=== PATIENT | male | born 1960 | race Caucasian/White ===

== ENCOUNTER 2017-10-27 10:35 | Inpatient (IN) ==
[~2017-10-27 10:35] MED LIST: BUPivacaine Liposome/PF (Exparel) Inj 20ml vial INFIL ONE; Ketorolac Inj 30 MG, Morphine Inj 5 MG, BUPivacaine Inj 0.25% PF 150 MG SPLASH ONE; LIDOCAINE W/ SODIUM BICARB 0.5 ML SYR ONE; LIDOCAINE W/ SODIUM BICARB 0.5 ML SYR SUBD ONE; Lactated Ringers 1,000 ML PRIMARY IV ONE; Sodium Chloride 0.9% 0 ML ONE; TRANEXAMIC ACID 1,000 MG / 10 ML VIAL ONE; ceFAZolin Inj 2gm (Premix) 0 GM/0 ML BAG IV ONE; ceFAZolin Inj 2gm (Premix) 2 GM/50 ML BAG IV ONE
[2017-10-27 11:16] LABS: BILIRUBIN,URINE NEGATIVE (NEG); CLARITY,URINE CLEAR (CLEAR); COLOR,URINE YELLOW (Y); GLUCOSE, URINE (UA) NEGATIVE (NEG); OCCULT BLOOD,URINE NEGATIVE (NEG); PH,URINE 5.5 (5.0-8.5); PROTEIN,URINE NEGATIVE (NEG); UROBILINOGEN,URINE 0.2 EU/dL (0.2)
[2017-10-27 11:19] LABS: URINE SAMPLE TYPE CLEAN CATCH URINE
[2017-10-27] MEDS: Lactated Ringers 1,000 ML PRIMARY IV SCH ×2 (11:32→19:52)
[2017-10-27] MEDS ORDERED: MIDAZOLAM 5 MG/1 ML ONE ×2 (11:54→12:49)
[2017-10-27] MEDS ORDERED: LIDOCAINE 2%/ EPI 1:200,000 - 20 ML VIAL ONE (11:54)
[2017-10-27] MEDS ORDERED: BUPivacaine Inj 0.5% PF (5mg/ml) 30ml vial ONE (11:55)
[2017-10-27] MEDS ORDERED: fentaNYL Inj 250 MCG/5 ML VIAL ONE (11:55)
[2017-10-27] MEDS ORDERED: LIDOCAINE W/ SODIUM BICARB 0.5 ML SYR ONE (11:59)
[2017-10-27] MEDS ORDERED: PROPOFOL 10 MG/1 ML (200 MG/20 ML) VIAL IV ONE (12:36)
[2017-10-27] MEDS ORDERED: LIDOCAINE MPF 2% - 5 ML (20 MG/1 ML) ONE ×2 (12:36→16:23)
[2017-10-27] MEDS ORDERED: LIDOCAINE HCL 2 % 10 ML JELLY URO-JECT TOPICAL ONE (12:48)
[2017-10-27] MEDS ORDERED: ePHEDrine Inj 50 MG/ML AMP ONE (13:27)
[2017-10-27] MEDS: Tranexamic Acid 1,000 MG in Sodium Chloride 0.9% 100 ML IV SCH ×2 (13:39→15:52)
[2017-10-27] MEDS ORDERED: SUFENTANIL 50 MCG/1 ML ONE (13:41)
[2017-10-27] MEDS ORDERED: Lactated Ringers 1,000 ML PRIMARY IV ONE ×2 (15:01→16:18)
[2017-10-27] MEDS ORDERED: BUPivacaine Liposome/PF (Exparel) Inj 20ml vial INFIL ONE (16:06)
[2017-10-27] MEDS ORDERED: Sodium Chloride 0.9% vial 40 ML ONE (16:07)
[2017-10-27] MEDS ORDERED: BUPivacaine Inj 0.5% PF (5mg/ml) 10ml vial ONE (16:17)
[2017-10-27] MEDS ORDERED: BETAMET ACET/BETAMET NA PH 6 MG/1 ML - 5 ML ONE (16:17)
[2017-10-27] MEDS ORDERED: KETOROLAC 30 MG/1 ML VIAL ONE (16:44)
[2017-10-27] MEDS ORDERED: ONDANSETRON 4 MG/2 ML VIAL IVP PRN ×2 (17:26→18:33)
[2017-10-27] MEDS ORDERED: LIDOCAINE W/ SODIUM BICARB 0.5 ML SYR SUBD PRN (17:26)
[2017-10-27] MEDS ORDERED: HYDROmorphone 2 MG/1 ML IVP PRN (17:26)
[2017-10-27] MEDS ORDERED: NORMAL SALINE 10 ML SYRINGE FLUSH IVP PRN ×2 (17:26→18:33)
--- NOTE | 2017-10-27 17:30 | CRNA.PROGR ---
Anesthesia Recovery Phase I - Post Anesthesia Evaluation Patient's Condition on Arrival in Phase I: Stable Patient's Condition on Arrival in Phase II: Stable Pain Level: 2
--- NOTE | 2017-10-27 17:30 | CRNA.PROCE ---
Nerve Block Documentation - - Type of Nerve Block Used: Right Adductor Canal Nerve Block Position for Nerve Block: Supine Moniters Used During Block: EKG, SPO2 Oxygen Supplemented: Yes Sedation Used - Enter Amount in Comment Field [ANES.SEDAT]: Midazolam (mg): Yes (6mg), Fentanyl (mcg): Yes (100mcg) Skin Prep Used: ChloroPrep Draped: No Technique: Nerve Stimulator (and ultrasound) Nerve Block Needle Used: EchoFeeding Forward 100 mm Stimulation Hz: 2 Stimulation Staring mA: 1.6 Stimulation Ending mA: 1.0 Local Anesthetic - Enter Amt in Comment Field [ANES.LOCNB]: 0.5 % Bupivacaine Plain (mL): Yes (20ml), 2 % Xylocaine with Epinephrine 1:200,000 (mL): Yes (20ml ) Additives to Nerve Blocks: Dexamethasone (mg): Yes (8mg) - - PreOp Block : Time In: 12:15 PreOp Block : Time Out: 12:35 Anesthesia Time - Other Weight: 133.81 kg Height: 5 ft 8 in Body Mass Index (BMI): 44.8
--- NOTE | 2017-10-27 17:31 | CRNA.PROGR ---
Anesthesia Time - - Start date: 10/27/17 End date: 10/27/17 - Procedure/Recovery Time Anesthesia : Time In: 13:00 Anesthesia : Time Out: 17:21 Anesthesia : Total Time: 261 - Block Time PreOp Block : Time In: 12:15 PreOp Block : Time Out: 12:35 PreOp Block : Total Time: 20 - Total Anesthesia Time Total Anesthesia Time (minutes): 281 - Other Weight: 133.81 kg Height: 5 ft 8 in Body Mass Index (BMI): 44.8 Physical Status: P3 Anesthesia Type: General Anesthesia : ET (adductor canal block for post op pain control.)
--- NOTE | 2017-10-27 17:31 | ORTHO.OP ---
Surgery Date: 10/27/17 Preoperative Diagnosis: Osteoarthritis right knee Postoperative Diagnosis: Same Procedure: Right total knee arthroplasty using the Preethi persona knee system with medial congruent tray cruciate sacrificing Surgeon: Vladislav Barrera MD Director [employer] Operations: HARMONY Cruz Anesthesia Provider: Bradley Lauren CRNA Anesthesia Type: General, Regional Estimated Blood Loss (mL): 50 Fluids: 4300 mL crystalloid urine output 200 mL Complications: None Operative Summary: Extubated and taken recovery room in stable condition.
[2017-10-27] MEDS ORDERED: IBUPROFEN 400 MG TABLET PO PRN (18:33)
[2017-10-27] MEDS ORDERED: BISACODYL 5 MG TABLET PO PRN (18:33)
[2017-10-27] MEDS ORDERED: CALCIUM CARBONATE 500 MG (TUMS) CHEWABLE TABLET PO PRN (18:33)
[2017-10-27] MEDS ORDERED: CELECOXIB 200 MG CAPSULE PO PRN (18:33)
[2017-10-27] MEDS ORDERED: MAG HYDROX/AL HYDROX/SIMETH 30 ML SUSP PO PRN (18:33)
[2017-10-27] MEDS ORDERED: BISACODYL 10 MG SUPPOSITORY RECTAL PRN (18:33)
[2017-10-27] MEDS ORDERED: ACETAMINOPHEN 325 MG TABLET PO PRN (18:33)
[2017-10-27] MEDS ORDERED: diphenhydrAMINE 25 MG CAPSULE PO PRN (18:33)
[2017-10-27] MEDS ORDERED: Ondansetron ODT Tab 8 MG TAB PO PRN (18:33)
[2017-10-27] MEDS ORDERED: MORPHINE SULFATE 2 MG/1 ML IVP PRN (18:33)
[2017-10-27] MEDS ORDERED: Prochlorperazine Tab 10 MG TAB PO PRN (18:33)
[2017-10-27] MEDS: ceFAZolin Inj 2gm (Premix) 2 GM/50 ML BAG IV SCH (18:48)
[2017-10-27] MEDS: D5-1/2NS + 20mEq KCL 1,000 ML PRIMARY IV SCH (19:35)
[2017-10-27] MEDS: oxyCODONE/APAP 7.5/325 Tab 1 TAB TAB PO PRN (19:40)
--- NOTE | 2017-10-27 19:57 | DI ---
RIGHT KNEE, 10/27/2017 6:00 PM: Clinical History: Status post total knee replacement. Osteoarthritis. Previous Exam: 09/24/2017. AP and lateral views are submitted. The patient is status post total right knee replacement. The pros thetic joint articulates normally. A drain tube is in place. Reading: Status post total right knee replacement. The prosthetic joint articulates normally.
[2017-10-27] MEDS: Triamterene/HCTZ 75/50 Tab 1 TAB TAB PO SCH (20:00)
[2017-10-27] MEDS: DOCUSATE 100 MG CAPSULE PO SCH (20:01)
[2017-10-27] MEDS: CARVEDILOL 6.25 MG TABLET PO SCH (20:01)
[2017-10-27] MEDS: GABAPENTIN 300 MG CAPSULE PO SCH (20:02)
[2017-10-28] MEDS: oxyCODONE/APAP 7.5/325 Tab 1 TAB TAB PO PRN ×6 (00:11→20:54)
[2017-10-28] MEDS: ceFAZolin Inj 2gm (Premix) 2 GM/50 ML BAG IV SCH (02:53)
[2017-10-28 05:23] LABS: Hematocrit [HCT] 37.7 % (42.0-52.0); Hemoglobin [HGB] 12.5 g/dL (14.0-18.0); MEAN CORPUSCULAR HEMOGLOBIN 31.3 PG (27-31); MEAN CORPUSCULAR HGB CONC 33.2 g/dL (33-37); MEAN CORPUSCULAR VOLUME 94.3 FL (80-90); MEAN PLATELET VOLUME 10.8 FL (7.4-12.2)
[2017-10-28 05:31] LABS: BLOOD UREA NITROGEN 16 mg/dL (7-22)
[2017-10-28] MEDS: D5-1/2NS + 20mEq KCL 1,000 ML PRIMARY IV SCH ×2 (05:37→15:10)
--- NOTE | 2017-10-28 08:19 | ORTHO.PROG ---
Last Taken Vital Signs: Vital Signs - Last Taken Temperature 97 F 10/28/17 08:05 Pulse Rate 79 10/28/17 08:05 Respiratory Rate 20 10/28/17 08:05 Blood Pressure 141/62 10/28/17 08:05 Pulse Ox 96 10/28/17 08:05 Subjective: Patient sitting up in bed. Remains comfortable. His femoral nerve block is working nicely. Received some Percocet through the night. Objective: Vital signs stable patient is afebrile. Right knee dressing clean and dry. Knee is straight. He is able to lift his leg up. Just over 100 mL of blood drainage on 3 different occasions through the night. 100 mL was emptied at 6: 00 this morning. Postoperative x-rays were reviewed showing satisfactory position of the hardware. Assessment: Impression: Doing well postop day 1 from right total knee. Plan: Plan: Is to start him on Xarelto once a day. Begin physical therapy today. He' ll use a CPM machine. DC his Diallo. heplok IV when taking by mouth well
[2017-10-28] MEDS: CITALOPRAM 20 MG TABLET PO SCH (08:20)
[2017-10-28] MEDS: DOCUSATE 100 MG CAPSULE PO SCH ×2 (08:20→20:54)
[2017-10-28] MEDS: CARVEDILOL 6.25 MG TABLET PO SCH ×2 (08:20→20:54)
[2017-10-28] MEDS: Triamterene/HCTZ 75/50 Tab 1 TAB TAB PO SCH (08:20)
[2017-10-28] MEDS: LOSARTAN 50 MG TABLET PO SCH (08:20)
[2017-10-28] MEDS: GABAPENTIN 300 MG CAPSULE PO SCH ×3 (08:21→20:54)
[2017-10-28] MEDS: Rivaroxaban Tab 10 MG TAB PO SCH (09:22)
--- NOTE | 2017-10-28 09:56 | CONSULT ---
Consult Note - Consult Consult Date: 10/28/17 Reason for Consult: PostOp Consulation : Ortho Requesting Physician: Dr. Barrera Primary Care Provider: Jude Mccloud MD - History of Present Illness History of Present Illness: This is a 56 years old male with medical history significant for history of hypertension, hyperlipidemia, obstructive sleep apnea on CPAP, obesity and also arthritis both knees who came into the hospital to have surgery and was done by Dr. Barrera yesterday. He had the right knee replacement. The hospitalist service were consulted for management of medical issues. The patient is doing well postoperatively. His pain seemed to be controlled. He is denying shortness of breath, no nausea. He worked with physical therapy earlier today. Past Medical History Medical History: 1. Hypertension. 2. Sleep apnea on CPAP. 3. Hypercholesterolemia Surgical History: 1. Cholecystectomy. 2. History of lumbar spinal fusion surgery Family History: Reviewed an Not Pertinent Past Social History: Doesn't smoke, doesn't drink no drugs. He works in the [employer] field now is on disability until he is cleared after the his knee surgeries. He said there is a plan for him to have another replacement of the other knee. Tobacco Use: Never Smoker In the Past 12 Months, Have Used or Abuse Any of the Following Substance: None Review of Systems - Review of Systems All Systems: Reviewed & No Additional Complaints Except as Stated Medication / Allergies Home Medications: Home Medications 3 Medication Instructions Recorded Confirmed Type Gabapentin 1 cap PO TID #90 cap 11/23/16 10/27/17 Rx Losartan Potassium 1 tab PO DAILY #30 tab 11/23/16 10/27/17 Rx triamterene 75 1 tab PO QAM #30 tab 09/01/17 10/27/17 Rx mg-hydrochlorothiazide 50 mg tablet carvedilol 6.25 mg tablet 6.25 mg PO BID #60 tab 09/23/17 10/27/17 Rx citalopram 40 mg tablet 40 mg PO QDAY #90 tab 10/07/17 10/27/17 Rx meloxicam 15 mg tablet 15 mg PO QDAY PRN tab 10/19/17 10/27/17 History Allergies/Adverse Reactions: Allergies 3 Allergy/AdvReac Type Severity Reaction Status Date / Time No Known Allergies Allergy Verified 10/27/17 11:11 Exam - Vitals Vital Signs: Vital Signs Temperature 97 F Temperature Source Temporal Artery Scan Pulse Rate [Apical] 86 Pulse Rate [Pulse Oximeter] 79 Pulse Rate 93 Respiratory Rate 20 Blood Pressure [Right Arm] 141/62 Blood Pressure 142/86 Pulse Ox 96 Oxygen Flow Rate 3 Oxygen Delivery Method Nasal Cannula Height 5 ft 8 in Weight 295 lb - General General Appearance: No Acute Distress, Cooperative, Obese - Head Head Exam: Normal Inspection, Atraumatic - Eye Eye Exam: POSITIVE: Normal Appearance - ENT ENT Exam: POSITIVE: Normal Exam - Neck Neck Exam: Normal Inspection - Respiratory Respiratory Exam: POSITIVE: Clear to Auscultation - Bilaterally - Cardiovascular Cardiovascular Exam: POSITIVE: RRR - GI/Abdominal GI/Abdominal Exam: POSITIVE: Normal Bowel Sounds, Non Tender, Non Distended, Soft, No Organomegaly - Rectal Rectal Exam: POSITIVE: Deferred - External Exam: POSITIVE: Deferred - Extremities Additional Extremities Exam Details: Dressing applied to the right knee. SCDs on the left leg. - Back Back Exam: POSITIVE: Normal Inspection - Neurological Neurological Exam: POSITIVE: Alert, Oriented x 3, CN II-XII Intact, No Facial Droop, Speech Intact / Clear, Moves All Extremities Equally - Psychiatric Psychiatric Exam: POSITIVE: Normal Affect Results - Labs CBC and BMP: 10/28/17 04:35 10/28/17 04:35 Assessment and Plan - Patient Problems (1) Status post right knee replacement Current Visit: Yes Status: Acute Comment: Continue PT and OT. For DVT prophylaxis Dr. Barrear put him on Xarelto Code(s): Z96.651 - Presence of right artificial knee joint (2) Essential hypertension Current Visit: No Status: None Comment: Same medications. (3) Obstructive sleep apnea treated with continuous positive airway pressure ( CPAP) Current Visit: No Status: Acute Onset Date: 02/24/16 Comment: Continue CPAP Code(s): G47.33 - Obstructive sleep apnea (adult) (pediatric); Z99.89 - Dependence on other enabling machines and devices
--- NOTE | 2017-10-28 11:49 | CRNA.PROGR ---
Anesthesia Note - Progress Notes Anesthesia Progress Note: Post OP Anesthesia Note Pt is lying in bed utilizing the CPM. He is awake alert and oriented. He has been up ambulating with PT and the catheter has been DC'd. He is tolerating a regular diet. He states that he has very little pain, and that he feels as thought the block is just beginning to fade. He denies any residual issues from the general anesthetic. Current VS are stable. Vital Signs - Last Taken Temperature 97.4 F 10/28/17 11:41 Pulse Rate 79 10/28/17 11:41 Respiratory Rate 20 10/28/17 11:41 Blood Pressure 154/64 10/28/17 11:41 Pulse Ox 96 10/28/17 11:41
[2017-10-28] MEDS ORDERED: ceFAZolin Inj 3 GM in Sodium Chloride 0.9% 100 ML IV ONE (13:00)
--- NOTE | 2017-10-28 14:15 | PTI REPORT ---
Thank you for the referral of Caesar Iqbal. He was seen on 10/28/17 for an inpatient evaluation status post right total knee arthroplasty. SUBJECTIVE: The patient is a 57-year-old male who has a history of degenerative joint disease in bilateral knees, low back pain and two previous lumbar surgeries, hypertension, and sleep apnea. He does live at home with his . There are several steps to enter the home with a single railing. Once in the home, he is able to remain on one level. He does have a tub shower. PAST MEDICAL HISTORY: Past medical history can be found in the patient's medical record. OBJECTIVE FINDINGS: General observations: At this time the patient is alert and oriented x3. The patient does have a CPM set at 0 to 60 degrees and ice circulating over the knee. Pain: The patient rates his pain in the right knee at rest at a level of 2/10 on the verbal analog scale (0=no pain, 10=worst pain). Bed mobility: The patient is able to come to sit from supine independently. Transfers: The patient is able to come from sit to stand independently. Balance: Standing balance is good. Ambulation: The patient was able to ambulate 80 feet with a standard walker, weight-bearing as tolerated on the right with decreased weight shift toward the right side. ASSESSMENT: Problem List: Increased pain Decreased ability to perform functional transfers Decreased range of motion in the right knee Decreased strength in the right knee Short-Term Goals: To be met by discharge from inpatient: Patient will be able to demonstrate independent transfers in and out of bed and in and out of chair with arms. Patient will be able to ambulate 150 feet with standard walker. Patient will be able to demonstrate active range of motion in the right knee of 0 degrees to 95 degrees. Long-Term Goals: To be met following discharge from inpatient: Patient will demonstrate independence with a home exercise program. Patient will be able to ambulate independently within his home with a standard walker. Patient will be independent with all transfers. TREATMENT PLAN: Patient will be seen B.I.D during the week and one time per day over the weekend as an inpatient to address the above goals and objectives. INITIAL TREATMENT: Treatment today consisted of the initial evaluation. The patient is able to demonstrate good activation of the quad and perform independent straight leg raises as well as independent heel slides with active range of motion of the knee from 5 to 85 degrees. Note done by: ZACHARY Mata
--- NOTE | 2017-10-28 17:02 | PT.PROG ---
Progress Note Progress Note: S. Patient stated that he is feeling good and would like to go for a walk this afternoon. O. Patient ambulated 150 feet around the nurses station then ascended and descended 5 stairs. Patient was left in chair with alarm and call light. Patient was able to achieve 85 degrees of flexion. A. Patient tolerated ambulation well this afternoon, he was able to complete stair training with ease. He agreed to do more therapy tomorrow. Patient would benefit from skilled therapy at this time. P. continue POC.
[2017-10-29] MEDS: oxyCODONE/APAP 7.5/325 Tab 1 TAB TAB PO PRN ×6 (00:45→20:18)
[2017-10-29 05:41] LABS: Hematocrit [HCT] 34.6 % (42.0-52.0); Hemoglobin [HGB] 11.5 g/dL (14.0-18.0); MEAN CORPUSCULAR HEMOGLOBIN 31.7 PG (27-31); MEAN CORPUSCULAR HGB CONC 33.2 g/dL (33-37); MEAN CORPUSCULAR VOLUME 95.3 FL (80-90); MEAN PLATELET VOLUME 10.7 FL (7.4-12.2); RED BLOOD COUNT 3.63 10^6/uL (4.70-6.10)
[2017-10-29 05:51] LABS: BLOOD UREA NITROGEN 22 mg/dL (7-22); BUN/CREATININE RATIO 31.42 (6-20)
[2017-10-29] MEDS: DOCUSATE 100 MG CAPSULE PO SCH ×2 (08:27→20:19)
[2017-10-29] MEDS: LOSARTAN 50 MG TABLET PO SCH (08:27)
[2017-10-29] MEDS: CITALOPRAM 20 MG TABLET PO SCH (08:28)
[2017-10-29] MEDS: GABAPENTIN 300 MG CAPSULE PO SCH ×3 (08:28→20:19)
[2017-10-29] MEDS: Triamterene/HCTZ 75/50 Tab 1 TAB TAB PO SCH (08:28)
[2017-10-29] MEDS: Rivaroxaban Tab 10 MG TAB PO SCH (08:28)
--- NOTE | 2017-10-29 08:32 | ORTHO.PROG ---
Last Taken Vital Signs: Vital Signs - Last Taken Temperature 97.8 F 10/29/17 07:21 Pulse Rate 70 10/29/17 07:21 Respiratory Rate 14 10/29/17 07:21 Blood Pressure 141/71 10/29/17 07:21 Pulse Ox 96 10/29/17 07:21 Subjective: Patient sitting on edge of bed. Seems to be in a little more discomforts morning. Overall doing well. Therapy went well yesterday. Objective: Vital signs stable patient afebrile. Knee dressings were taken down. Drain was removed. Drain was almost out. Had lost its suction. Knee incision clean and dry. No effusion. Knee is fully extended. Hemoglobin and hematocrit 11.5 and 34.6. Assessment: Impression: Doing well postop day 2 from total knee right. Diallo catheter is out. IV has been hep-locked. Plan: Plan: Is to continue physical therapy. Eze stocking has been applied to the right lower extremity. Possible discharge this weekend.
[2017-10-29] MEDS: CARVEDILOL 6.25 MG TABLET PO SCH ×2 (08:35→20:18)
--- NOTE | 2017-10-29 08:53 | OTI REPORT ---
Thank you for the referral of Caesar Iqbal. He was seen on 10/28/17 for an occupational therapy inpatient evaluation status post right total knee arthroplasty. SUBJECTIVE: The patient is a 57-year-old male who has recently undergone a right total knee arthroplasty. The patient rates his pain at this time as a 4/10 on the verbal analog scale (0=no pain, 10=worst pain). He states he is feeling pretty good. The patient reports at prior level of function he had significant pain in the right and left knee and he has had several falls secondary to the right knee buckling due to weakness and pain. 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 He also has to be able to carry 150 pounds of hose during his job. The patient reports that he has approximately 5 steps to the entrance of his home with handrails. Within the home he has no steps; he has carpet within the bedroom and tile and hardwood kerri in the living room and kitchen. The patient does report that he has a tub/shower combo. He does have a toilet riser at home as well as a shower chair with a back. He also has a hammer runner at home; however, he would like a sock aide because his broke. The patient has a history of back surgery with fusions at L4-L5 and L5-S1. The patient lives at home with his who is able to provide assistance as needed. PAST MEDICAL HISTORY: Past medical history can be found in the patient's medical record. OBJECTIVE FINDINGS: Range of motion: The patient demonstrated upper extremity range of motion bilaterally within functional limits for the shoulder, elbow, hand, and wrist. Strength: The patient demonstrated 5/5 strength for the shoulder, elbow, hand, and wrist bilaterally. Bed mobility: The patient completed bed mobility tasks with a log rolling technique due to back pain. The patient transferred from sitting edge of bed to supine independently. Transfers: The patient demonstrated the ability to complete sit to stand transfers with a four point walker with stand by assistance only. Ambulation: The patient demonstrated the ability to walk 70 feet with a four point walker with stand by assistance only. Activities of daily living: The patient completed a standing toileting task with stand by assistance and was able to stand x5 minutes at the sink before becoming fatigued. ASSESSMENT: Problem List: Decreased ability to perform lower extremity dressing Short-Term Goals: To be met by discharge from inpatient: Patient will demonstrate the ability to complete lower extremity dressing with use of adaptive equipment as needed to include a hammer runner and a sock aide with set up assistance only. Long-Term Goals: To be met following discharge from inpatient: Patient will return home and be modified independent with ADLs and safe with all transfers. TREATMENT PLAN: Patient will be seen for one more session tomorrow for AM dressing session. If the patient demonstrate effective dressing skills, the patient will be discharged from occupational therapy. INITIAL TREATMENT: Treatment today consisted of the initial evaluation followed by functional ambulation x70 feet, standing grooming tasks, and toileting task. The patient was issued a soft sock aide and instructed in its propre use and care. ALIN
--- NOTE | 2017-10-29 10:31 | OT.PROG ---
Progress Note Progress Note: Occupational Therapy: 20 min S: pt stated he was feeling good today. O: pt completed Blue TB exercises of biceps x30, triceps x30, extension x30, flexion x30, chest pulls x30, IROT/EROT x30, abduction x30. A: pt tolerated session well. kept slow and steady pace throughout therapy session. P: continue POC
--- NOTE | 2017-10-29 12:21 | PDOC(PROG) ---
Date and Time of Service: 10/29/2017 12:19 PM Interval History: Subjective Patient said he had some stiffness and pain earlier but he is doing better now. No other symptoms. Objective : Data - Labs CBC and BMP: 10/29/17 04:48 10/29/17 04:48 Objective : Exam - General General Appearance: No Acute Distress, Cooperative - Head Head Exam: Normal Inspection, Normocephalic, Atraumatic - Eye Eye Exam: Normal Appearance - ENT ENT Exam: Normal Exam - Neck Neck Exam: Normal Inspection - Respiratory Respiratory Exam: Clear to Auscultation - Bilaterally - Cardiovascular Cardiovascular Exam: RRR - GI/Abdominal GI/Abdominal Exam: Normal Bowel Sounds, Non Tender, Non Distended, Soft, No Organomegaly - Rectal Rectal Exam: Deferred - External Exam: Deferred - Extremities Additional Extremities Exam Details: Dressing applied to the right knee. - Back Back Exam: Normal Inspection - Neurological Neurological Exam: Alert, Oriented x 3, CN II-XII Intact, No Facial Droop, Speech Intact / Clear - Psychiatric Psychiatric Exam: Normal Affect Assessment and Plan - Patient Problems (1) Status post right knee replacement Current Visit: Yes Status: Acute Comment: Continue PT and OT. Per Dr. Barrera note probably discharge over the weekend. For DVT prophylaxis he is on Xarelto. Code(s): Z96.651 - Presence of right artificial knee joint (2) Essential hypertension Current Visit: No Status: None Comment: Continue same blood pressure medications (3) Obstructive sleep apnea treated with continuous positive airway pressure ( CPAP) Current Visit: No Status: Acute Onset Date: 02/24/16 Comment: Continue CPAP Code(s): G47.33 - Obstructive sleep apnea (adult) (pediatric); Z99.89 - Dependence on other enabling machines and devices
[2017-10-30] MEDS: oxyCODONE/APAP 7.5/325 Tab 1 TAB TAB PO PRN ×3 (01:12→08:38)
[2017-10-30 05:48] LABS: Hemoglobin [HGB] 12.4 g/dL (14.0-18.0); MEAN CORPUSCULAR HEMOGLOBIN 32.1 PG (27-31); MEAN CORPUSCULAR HGB CONC 33.5 g/dL (33-37); MEAN CORPUSCULAR VOLUME 95.9 FL (80-90); MEAN PLATELET VOLUME 10.8 FL (7.4-12.2); RED BLOOD COUNT 3.86 10^6/uL (4.70-6.10)
[2017-10-30 06:02] LABS: BLOOD UREA NITROGEN 22 mg/dL (7-22); BUN/CREATININE RATIO 36.66 (6-20)
[2017-10-30 06:51] VITALS: RESP 16
[2017-10-30 06:52] VITALS: BP 144/59; TEMP 97.8; O2SAT 96
[2017-10-30] MEDS: LOSARTAN 50 MG TABLET PO SCH (08:38)
[2017-10-30] MEDS: Triamterene/HCTZ 75/50 Tab 1 TAB TAB PO SCH (08:38)
[2017-10-30] MEDS: DOCUSATE 100 MG CAPSULE PO SCH (08:38)
[2017-10-30] MEDS: CITALOPRAM 20 MG TABLET PO SCH (08:38)
[2017-10-30] MEDS: Rivaroxaban Tab 10 MG TAB PO SCH (08:38)
[2017-10-30] MEDS: GABAPENTIN 300 MG CAPSULE PO SCH (08:39)
[2017-10-30] MEDS: CARVEDILOL 6.25 MG TABLET PO SCH (08:39)
--- NOTE | 2017-10-30 09:37 | ORTHO.PROG ---
Last Taken Vital Signs: Vital Signs - Last Taken Temperature 97.8 F 10/30/17 06:51 Pulse Rate 78 10/30/17 06:51 Respiratory Rate 16 10/30/17 06:51 Blood Pressure 144/59 10/30/17 06:51 Pulse Ox 96 10/30/17 06:51 Subjective: Patient was seen and examined in the physical therapy department today. Doing actually quite well. Feels good enough to go home today. Objective: Vital signs are stable patient is afebrile. Right knee incision is clean and dry. Dressing is in place. Range of motion shows near full extension and about 100 of flexion today sitting on the edge of a table. Trace effusion. Assessment: Impression: Doing excellent postop day 3 from right total knee. Plan: Plan: Is to discharge him home. He will use a home CPM machine. He'll follow up and start outpatient physical therapy on Wednesday. I will see him back in my office on Wednesday, November 09 for suture removal. He'll be sent home on Percocet and another week's worth of Xarelto.
--- NOTE | 2017-10-30 09:46 | DCSUMMARY ---
Hospitalization Summary Admit Date: 10/27/2017 Discharge Date: 10/30/17 Hospital Course: Discharge diagnoses 1. Status post right knee replacement 2. History of hypertension 3. History of sleep apnea Hospital course This is a 56 years old male with medical history significant for history of hypertension, obstructive sleep apnea, obesity and also arthritis of the knees who came into the hospital to have surgery and was done by Dr. Barrera. He had right knee replacement. His post operative course was eventful. He did well with physical therapy. He was seen on day of discharge by Dr. Barrera and he discharged him home. He discharged him on few days of Xarelto and pain medications. And he will follow-up with Dr. Barrera later on as an outpatient. Laboratory Results 10/30/17 10/30/17 Range/Units 05:02 05:02 WBC 14.52 H (4.8-10.8) 10^3/uL RBC 3.86 L (4.70-6.10) 10^6/uL Hgb 12.4 L (14.0-18.0) g/dL Hct 37.0 L (42.0-52.0) % MCV 95.9 H (80-90) FL MCH 32.1 H (27-31) PG MCHC 33.5 (33-37) g/dL RDW Std Deviation 43.5 (39-50) fL RDW [employer]eff of [place] 12.9 (11.5-14.5) % Plt Count 274 (140-350) 10*3/uL MPV 10.8 (7.4-12.2) FL Sodium 141 (135-145) meq/L Potassium 4.0 (3.8-5.2) meq/L Chloride 97 L (98-112) meq/L Carbon Dioxide 32 (23-33) meq/L Anion Gap 12 (5-20) BUN 22 (7-22) mg/dL Creatinine 0.6 L (0.70-1.50) mg/dL Estimated GFR > 60 (>60 ml/min/1.73m(2)) BUN/Creatinine Ratio 36.66 H (6-20) Glucose 100 (78-110) mg/dL Calculated Osmolality 294.0 H (267-292) mOsm/kg Calcium 9.0 (8.7-10.7) mg/dL Discharge instruction Diet regular Activity as started Medications Current Medication(s) 3 Medication Instructions Recorded Confirmed Type Gabapentin 1 cap PO TID #90 cap 11/23/16 10/27/17 Rx Losartan Potassium 1 tab PO DAILY #30 tab 11/23/16 10/27/17 Rx triamterene 75 1 tab PO QAM #30 tab 09/01/17 10/27/17 Rx mg-hydrochlorothiazide 50 mg tablet carvedilol 6.25 mg tablet 6.25 mg PO BID #60 tab 09/23/17 10/27/17 Rx citalopram 40 mg tablet 40 mg PO QDAY #90 tab 10/07/17 10/27/17 Rx meloxicam 15 mg tablet 15 mg PO QDAY PRN tab 10/19/17 10/27/17 History Docusate Sodium [Colace] 100 mg PO BID #30 cap 10/30/17 Rx Rivaroxaban [Xarelto] 10 mg PO DAILY #7 tab 10/30/17 Rx oxyCODONE/APAP 7.5/325 Tab 1 - 2 tab PO Q4H PRN #55 tab 10/30/17 Rx [Percocet 7.5/325 Tab] Follow-up with the PCP 1-2 weeks, follow-up with Dr. Barrera as scheduled Condition at discharge was stable for discharge Exam - Vitals Vital Signs: Vital Signs Temperature 97.8 F Temperature Source Tympanic Pulse Rate [Apical] 80 Pulse Rate [Pulse Oximeter] 78 Pulse Rate 93 Respiratory Rate 16 Blood Pressure [Right Arm] 144/59 Blood Pressure 142/86 Pulse Ox 96 Oxygen Flow Rate 2 Oxygen Delivery Method Room Air Height 5 ft 8 in Weight 297 lb 14.4 oz - General General Appearance: No Acute Distress, Cooperative, Obese - Head Head Exam: Normal Inspection - Eye Eye Exam: POSITIVE: Normal Appearance - ENT ENT Exam: POSITIVE: Normal Exam - Neck Neck Exam: Normal Inspection - Respiratory Respiratory Exam: POSITIVE: Clear to Auscultation - Bilaterally - Cardiovascular Cardiovascular Exam: POSITIVE: RRR - GI/Abdominal GI/Abdominal Exam: POSITIVE: Normal Bowel Sounds, Non Tender, Non Distended, Soft, No Organomegaly - Rectal Rectal Exam: POSITIVE: Deferred - External Exam: POSITIVE: Deferred - Extremities Additional Extremities Exam Details: No edema in the legs. Dressing applied to the right knee. - Back Back Exam: POSITIVE: Normal Inspection - Neurological Neurological Exam: POSITIVE: Alert, Oriented x 3, CN II-XII Intact, No Facial Droop, Speech Intact / Clear - Psychiatric Psychiatric Exam: POSITIVE: Normal Affect Patient Problems - Patient Problem List (1) Status post right knee replacement Current Visit: Yes Status: Acute Code(s): Z96.651 - Presence of right artificial knee joint Category: Medical (2) Essential hypertension Current Visit: No Status: None Category: Medical (3) Obstructive sleep apnea treated with continuous positive airway pressure ( CPAP) Current Visit: No Status: Acute Onset Date: 02/24/16 Code(s): G47.33 - Obstructive sleep apnea (adult) (pediatric); Z99.89 - Dependence on other enabling machines and devices Category: Medical
--- NOTE | 2017-10-30 12:00 | OT.PROG ---
Progress Note Progress Note: S: pt stated he thought he was ok to go home and was ready. O: pt was seen in his room and completed transfer downstairs INd with use of walker. He received moist heat to elongate muscle fibers in preparation for exercises. He completed LE exercises including LAQ, SAQ, heal slides, 4 way ankles, hip abd/add and sit to stands. He also received manual therapy in form of PROM in flex and ext. He returned to his room and was left wit ice man on knee. A: pt participated well and has met all his goals. Dr Rucker was present to monitor knee flex and ext. P: per will d/c later today secondary to meeting all goals.
--- NOTE | 2017-11-01 10:02 | PT AM DAY ---
Diagnosis : Right Total Knee Arthroplasty AM - Physical Therapy S: The patient reports a pain level of 4/10 on the verbal analog scale (0= no pain, 10=worst pain) before pain medication. O: The patient was seen today for gait training with a standard walker, weight-bearing as tolerated on the right side. He was able to ascend and descend 10 steps with standard walker and a single rail with supervision. He was able to ambulate 140 feet with standard walker with good balance with supervision. The patient performed lower extremity strengthening exercises including short arc quads, heel slides, straight leg raises, long arc quads, resisted knee flexion, resisted ankle motion all four ways, and 4 minute drill. The patient was also seen for patellar mobilizations and slow active and passive stretching for knee flexion and extension with passive range of motion being 5 to 105 degrees. Following exercise session, the patient was positioned in sitting with the knee in a slow passive extension stretch. Ice pack was applied with a 6" Conner bandage to hold in place. A: The patient tolerated all activity extremely well. P: Continue seeing patient BID during the week and one time per day over the weekend for transfers, ambulation, and range of motion/strengthening exercises. Note done by: Brianna Royal, PT [facility]
--- NOTE | 2017-11-01 11:33 | PT PM DAY ---
Diagnosis : Right Total Knee Arthroplasty PM - Physical Therapy S: The patient is doing extremely well. He reports pain at rest of 2/10 on the verbal analog scale (0=no pain, 10=worst pain). O: Treatment today consisted of an application of moist heat pack x20 minutes including set up to the right knee with slow passive extension stretch followed by micro-current stimulation with very gentle stroking massage. The patient performed therapeutic exercises including quad sets, straight leg raises , heel slides, short arc quads, long arc quads, resisted knee flexion, and resisted ankle motion with green theraband in all directions. He was then seen for manual therapy with slow passive stretch for both flexion and extension. The patient demonstrates -5 degrees of extension and 110 degrees of flexion passively. He was returned to his room for application of ice while in the CPM. He is able to ambulate 200 feet with a standard walker with verbal cues to increase weight-bearing through an extended knee on that right side. A: The patient is doing extremely well. P: Continue seeing patient BID during the week and one time per day over the weekend for transfers, ambulation, and range of motion/strengthening exercises. Note done by: Brianna Royal, PT [facility]
== END 2017-10-30 12:30 | disposition home or self-care (01) | DRG 470 ==
LOC: OPS 10:35 → MED/SURG 17:26
PROVIDERS: ADMIT Orthopaedic Surgery; ATTEND Orthopaedic Surgery